=== PATIENT | male | born 1940 | race Two or more races ===

== ENCOUNTER 2019-10-09 15:31 | Emergency (ER) | payer MEDICARE ==
[~2019-10-09] VITALS: Ht 167.6 cm; Wt 84.4 kg
[2019-10-09 15:42] VITALS: BP 115/68
--- NOTE | 2019-10-09 15:44 | NUR ---
PATIENT TRIAGED, AND THEN INSISTED ON LEAVING, PATIENT STATED HE WANTS TO GO TO [facility] TO SEE HIS DOCTOR, JUST WANTED TO HAVE HID BLOOD PRESSURE CHECKED. EXPLAINED RISKS AND BENEFITS. DR. BOWEN MADE AWARE.
== END 2019-10-09 15:44 | disposition left against medical advice (07) ==
LOC: ER 15:32
DX: R42 Dizziness and giddiness (principal); Z53.21 Procedure and treatment not carried out due to patient leaving prior to being seen by health care provider